=== PATIENT | male | born 2000 | race African-American/Black ===

== ENCOUNTER 2020-06-25 18:43 | Inpatient (IN) ==
[2020-06-25 19:57] LABS: Urine Appearance Clear; Urine Bilirubin Negative (Negative); Urine Blood Negative (Negative); Urine Color Yellow; Urine Glucose Negative (Negative); Urine Ketones 1+ (Negative); Urine Nitrite Negative (Negative); Urine Protein Negative (Negative); Urine Specific Gravity 1.024 (1.010-1.030); Urine Urobilinogen Negative (Negative)
[2020-06-25 20:12] LABS: Urine Benzodiazepine Screen None Detected (None Detect); Urine Cannabinoids Screen Presumptive Positive (None Detect); Urine Opiates Screen None Detected (None Detect)
[2020-06-25 20:35] LABS: ABS Lymphocytes 1.6 10^3/ul (1.0-4.8); ABS Monocytes 0.4 10^3/ul (0-0.8); ABS Neutrophils 2.9 10^3/ul (1.5-7.7); Eosinophil % 0.7 %; Hematocrit 47 % (42-52); Hemoglobin 15.5 g/dL (14.0-18.0); Lymphocyte % 32.7 %; Mean Corpuscular HGB Conc 33 g/dL (31-36); Mean Corpuscular Hemoglobin 29 pg (27-31); Mean Corpuscular Volume 87 fL (80-94); Mean Platelet Volume 8.5 fL (7.4-10.4); Nucleated Red Blood Cells % 0.3; Platelet Count 241 10^3/uL (150-450); Red Blood Count 5.35 10^6 /uL (4.18-5.48); Red Cell Distribution Width 14 % (10-15)
[2020-06-25 20:51] LABS: ALT 21 U/L (7-52); AST 28 U/L (13-39); Albumin 5.3 g/dL (3.2-5.2); Albumin/Globulin Ratio 1.7 (1-3); Alkaline Phosphatase 75 U/L (34-104); Anion Gap 8 mmol/L (2-11); BUN/Creatinine Ratio 13.7 (8-20); Blood Urea Nitrogen 14 mg/dL (6-24); CO2 Carbon Dioxide 28 mmol/L (22-32); Calcium 9.9 mg/dL (8.6-10.3); Chloride 103 mmol/L (101-111); EGFR African American 112.7 (>60); EGFR Non-African American 93.1 (>60); Globulin 3.1 g/dL (2-4); Glucose 90 mg/dL (70-100); Potassium 3.5 mmol/L (3.5-5.0); Sodium 139 mmol/L (135-145); Total Protein 8.4 g/dL (6.4-8.9)
[2020-06-25 20:52] LABS: Acetaminophen < 15 mcg/mL; Alcohol, S < 10 mg/dL (<10); Salicylate < 2.50 mg/dL (<30)
[2020-06-25 21:06] LABS: TSH Ultra Thyroid Stim Horm 0.71 mcIU/mL (0.34-5.60)
[2020-06-26] MEDS ORDERED: Al Hydrox/Mg Hydrox/Simet LIQ 30 ML UDC PO PRN (00:21)
[2020-06-26 08:02] LABS: HDL Cholesterol 45.8 mg/dL
[2020-06-26] MEDS: Vitamin THERAPEUTIC TAB PO SCH (10:59)
[2020-06-27 10:04] LABS: HIV 4th Generation Nonreactive (Nonreactive)
[2020-06-27] MEDS: Vitamin THERAPEUTIC TAB PO SCH (10:12)
[2020-06-27 10:20] LABS: Hepatitis B Surface Antigen Nonreactive (Nonreactive)
[2020-06-27 10:25] LABS: Hepatitis A Ab IgM Negative (Negative)
[2020-06-27 10:26] LABS: Hepatitis B Core IgM Nonreactive (Nonreactive)
[2020-06-27 10:38] LABS: Hepatitis C Antibody Negative (Negative)
[2020-06-28] MEDS: Vitamin THERAPEUTIC TAB PO SCH (08:30)
[2020-06-29] MEDS: Vitamin THERAPEUTIC TAB PO SCH (08:21)
[2020-06-30] MEDS: Vitamin THERAPEUTIC TAB PO SCH (10:01)
[2020-07-01] MEDS: Vitamin THERAPEUTIC TAB PO SCH (08:38)
[2020-07-01 12:55] LABS: Chlamydia trachomatis NAA Negative (Negative); Neisseria gonorrhoeae (GC) NAA Negative (Negative)
[2020-07-02] MEDS: Vitamin THERAPEUTIC TAB PO SCH (08:23)
[2020-07-03] MEDS: Vitamin THERAPEUTIC TAB PO SCH (09:46)
[2020-07-03] MEDS: Benzocaine (DENTAL) 10% TOP.GEL TOPICAL PRN ×2 (11:01→16:17)
[2020-07-04] MEDS: Vitamin THERAPEUTIC TAB PO SCH (08:41)
[2020-07-04] MEDS: Benzocaine (DENTAL) 10% TOP.GEL TOPICAL PRN (19:55)
[2020-07-05] MEDS: Benzocaine (DENTAL) 10% TOP.GEL TOPICAL PRN (04:33)
[2020-07-05] MEDS: Vitamin THERAPEUTIC TAB PO SCH (08:21)
[2020-07-05 09:10] VITALS: BP 128/82
== END 2020-07-05 09:00 | disposition home or self-care (01) | DRG 751 ==
LOC: ED 18:43 → BSU 23:33
PROVIDERS: ADMIT Psychiatry & Neurology Psychiatry; ATTEND Psychiatry & Neurology Psychiatry

== ENCOUNTER 2021-01-30 23:56 | Inpatient (IN) ==
[2021-01-31] MEDS ORDERED: LORazepam 2 mg VIAL 1 ml IM ONE (01:13)
[2021-01-31] MEDS ORDERED: Ziprasidone IM 20 mg VIAL 1 ml VIAL IM ONE (01:13)
[2021-01-31 01:42] LABS: ABS Lymphocytes 1.6 10^3/ul (1.0-4.8); ABS Monocytes 0.7 10^3/ul (0-0.8); ABS Neutrophils 4.9 10^3/ul (1.5-7.7); Eosinophil % 0.6 %; Hematocrit 44 % (42-52); Hemoglobin 14.8 g/dL (14.0-18.0); Lymphocyte % 21.9 %; Mean Corpuscular HGB Conc 34 g/dL (31-36); Mean Corpuscular Hemoglobin 29 pg (27-31); Mean Corpuscular Volume 85 fL (80-94); Mean Platelet Volume 8.7 fL (7.4-10.4); Platelet Count 218 10^3/uL (150-450); Red Blood Count 5.12 10^6 /uL (4.18-5.48); Red Cell Distribution Width 13 % (10-15); White Blood Count 7.2 10^3/uL (3.5-10.8)
[2021-01-31 01:58] LABS: ALT 12 U/L (7-52); Albumin 4.8 g/dL (3.2-5.2); Albumin/Globulin Ratio 1.7 (1-3); Alkaline Phosphatase 71 U/L (34-104); Blood Urea Nitrogen 14 mg/dL (6-24); CO2 Carbon Dioxide 25 mmol/L (22-32); Calcium 9.7 mg/dL (8.6-10.3); Chloride 102 mmol/L (101-111); EGFR African American 114.1 (>60); EGFR Non-African American 94.3 (>60); Globulin 2.8 g/dL (2-4); Glucose 102 mg/dL (70-100); Sodium 135 mmol/L (135-145); Total Protein 7.6 g/dL (6.4-8.9)
[2021-01-31 02:04] LABS: Acetaminophen < 15 mcg/mL; Alcohol, S < 10 mg/dL (<10); Salicylate < 2.50 mg/dL (<30)
[2021-01-31 02:18] LABS: AST 23 U/L (13-39); Anion Gap 8 mmol/L (2-11); Potassium 3.5 mmol/L (3.5-5.0)
[2021-01-31 02:20] LABS: TSH Ultra Thyroid Stim Horm 1.78 mcIU/mL (0.34-5.60)
[2021-01-31] MEDS ORDERED: Sterile Water for Inj 10 ML ONE (02:44)
[2021-01-31] MEDS ORDERED: Al Hydrox/Mg Hydrox/Simet LIQ 30 ML UDC PO PRN (05:24)
[2021-01-31] MEDS: Vitamin THERAPEUTIC TAB PO SCH (12:34)
[2021-02-01] MEDS: Vitamin THERAPEUTIC TAB PO SCH (09:11)
[2021-02-02] MEDS ORDERED: LORazepam 2 mg VIAL 1 ml ONE (00:31)
[2021-02-02] MEDS ORDERED: Haloperidol 5 mg/ml SDV IV/IM 5 MG/ML AMP ONE (00:31)
[2021-02-02] MEDS ORDERED: LORazepam 2 mg VIAL 1 ml IM PRN (00:34)
[2021-02-02] MEDS ORDERED: Haloperidol 5 mg/ml SDV IV/IM 5 MG/ML AMP IM PRN (00:34)
[2021-02-02] MEDS ORDERED: Lorazepam PYXIS KEY PRN (00:35)
[2021-02-02] MEDS: Vitamin THERAPEUTIC TAB PO SCH (08:33)
[2021-02-03] MEDS ORDERED: Paliperidone SUSTENNA 234 MG/1.5 ML IM ONE (13:00)
[2021-02-03] MEDS: Vitamin THERAPEUTIC TAB PO SCH (13:56)
[2021-02-04 08:24] LABS: HDL Cholesterol 47.2 mg/dL
[2021-02-04] MEDS: Vitamin THERAPEUTIC TAB PO SCH (12:31)
[2021-02-05] MEDS: Vitamin THERAPEUTIC TAB PO SCH (09:49)
[2021-02-05] MEDS ORDERED: Paliperidone SUSTENNA 234 MG/1.5 ML IM ONE (09:56)
[2021-02-06] MEDS: Vitamin THERAPEUTIC TAB PO SCH (08:31)
[2021-02-07] MEDS: Vitamin THERAPEUTIC TAB PO SCH (12:55)
[2021-02-08] MEDS: Vitamin THERAPEUTIC TAB PO SCH ×2 (08:33→18:02)
[2021-02-09] MEDS: Vitamin THERAPEUTIC TAB PO SCH (08:25)
[2021-02-10 07:53] VITALS: BP 107/69
[2021-02-10] MEDS ORDERED: Paliperidone SUSTENNA 156 MG/1 ML IM ONE ×3 (09:00→11:30)
[2021-02-10] MEDS: Vitamin THERAPEUTIC TAB PO SCH ×2 (12:37→14:12)
== END 2021-02-10 17:00 | disposition home or self-care (01) ==
LOC: ED 23:56 → BSU 01-31 03:29
PROVIDERS: ADMIT Psychiatry & Neurology Psychiatry; ATTEND Psychiatry & Neurology Psychiatry